=== PATIENT | male | born 1955 | race Hispanic/Latino ===

== ENCOUNTER 2024-12-31 12:38 | Emergency (ER) | payer SELFPAY ==
[2024-12-31] MEDS ORDERED: Fluorescein Opthalmic Strip ONE (13:27)
[2024-12-31] MEDS ORDERED: Proparacaine 0.5% Opth 15 ML BOT ONE (13:28)
== END 2024-12-31 14:12 | disposition home or self-care (01) ==
LOC: CSHERS 12:38
DX: H57.89 Other specified disorders of eye and adnexa (principal); I10 Essential (primary) hypertension
CPT/HCPCS: 99283